=== PATIENT | male | born 1940 | race Two or more races ===

== ENCOUNTER 2025-05-01 15:00 | Emergency (ER) | payer OTHER ==
[~2025-05-01] VITALS: Ht 170.2 cm; Wt 81.6 kg
[2025-05-01] MEDS ORDERED: AMLODIPINE BESYL5 MG PO (16:24)
[2025-05-01] MEDS ORDERED: LISINOPRIL20 MG (16:24)
[2025-05-01] MEDS ORDERED: SODIUM CHLORIDE 0.45 % 1,000 ML IV STA (16:34)
[2025-05-01 17:42] LABS: BASO % 0.1 % (0.1-1.2); EOS # 0.00 (0.04-0.54); EOS % 0.0 % (0.7-7.0); LYMPH # 1.16 (1.18-3.74); LYMPH % 13.9 % (19.3-53.1); MEAN PLATELET VOLUME 11.10 fl (9.4-12.4); MONO # 0.66 (0.24-0.82); MONO % 7.9 % (4.7-12.5); NEUT # 6.49 (1.56-6.13); NEUT % 77.7 % (34.0-71.1); RED CELL DISTRIBUTION WIDTH 16.6 % (11.6-14.4)
[2025-05-01 18:17] LABS: INR 1.02
[2025-05-01 18:23] LABS: ALT/SGPT 32.0 U/L (12-78); AST/SGOT 35.0 U/L (15-37); BILIRUBIN TOTAL 0.47 mg/dL (0.3-1.2); BUN CREA RATIO 26.0 (7.0-25.0); CREATININE SERUM 0.97 mg/dL (0.70-1.30); GFR 73.91; GLOBULINA 3.9 G/DL (2.4-3.5); GLUCOSE FASTING 119.0 mg/dL (65-100); OSMOLALITY SERUM 292.0 MOSM/KG (275-295)
[2025-05-01] MEDS ORDERED: KETOROLAC TROMETHAMINE 30 MG VIAL IM STA (23:03)
== END 2025-05-01 23:49 | disposition home or self-care (01) ==
LOC: ER 15:00
PROVIDERS: General Practice
DX: S59.812A Other specified injuries left forearm, initial encounter (principal); W10.8XXA Fall (on) (from) other stairs and steps, initial encounter; Y93.89 Activity, other specified; Y92.098 Other place in other non-institutional residence as the place of occurrence of the external cause; Y99.8 Other external cause status; R07.89 Other chest pain; M54.9 Dorsalgia, unspecified; M25.522 Pain in left elbow; M79.632 Pain in left forearm; M53.3 Sacrococcygeal disorders, not elsewhere classified
CPT/HCPCS: 36415; 70450; 70490; 71250; 73070; 73090; 74176; 96372; 99284; J1885

== ENCOUNTER 2025-05-20 09:27 | Outpatient (CLI) | payer OTHER ==
[~2025-05-20 09:27] MED LIST: AMLODIPINE BESYL5 MG PO; LISINOPRIL20 MG
== END 2025-05-20 09:32 | disposition home or self-care (01) ==
LOC: RAD 09:27
PROVIDERS: ATTEND Orthopaedic Surgery
DX: M25.532 Pain in left wrist (principal); M79.642 Pain in left hand; M25.522 Pain in left elbow; M79.632 Pain in left forearm; M54.50 Low back pain, unspecified